=== PATIENT | female | born 1945 | race Caucasian/White ===

== ENCOUNTER 2025-03-09 08:29 | Observation (INO) ==
--- NOTE | 2025-03-09 08:45 | Emergency Department Note ---
HPI - Weakness General Chief complaint: Weakness Stated complaint: dehydration,uti Time Seen by Provider: 03/09/25 08:45 Source: patient and family Mode of arrival: wheelchair Limitations: no limitations History of Present Illness HPI Narrative: 79-year-old female presents to ER with her daughter with complaint of generalized weakness times several days, daughter believes she possibly has a UTI and reports that she has been more confused than normal. Patient daughter reports she is try to get Macrobid and her since Saturday. Patient reports she just does not feel well and that she is tired. MD Complaint: Reports generalized weakness Onset (ago): day(s) (4) Duration: Reports constant Location: Reports generalized Migration: Reports none Severity: moderate Quality: Reports aching and dull Relieving factors: Reports rest Exacerbating factors: Reports movement and exertion Context: Reports history of similar Associated symptoms: Reports dysuria, myalgias and shortness of breath Related Data Home Medications Medication Instructions Recorded Confirmed albuterol sulfate 2.5 mg/3 mL 2.5 mg inhalation DIRECTED PRN 03/09/25 03/09/25 (0.083 %) solution for nebulization shortness of breath or wheezing albuterol sulfate 90 mcg/actuation 2 puff inhalation DIRECTED PRN 03/09/25 03/09/25 aerosol inhaler shortness of breath or wheezing allopurinol 100 mg tablet 100 mg PO DAILY 03/09/25 03/09/25 calcium acetate(phosphat bind) 667 667 mg PO BID 03/09/25 03/09/25 mg capsule donepezil 5 mg tablet 5 mg PO BEDTIME 03/09/25 03/09/25 ergocalciferol (vitamin D2) 1,250 1,250 mcg PO QWEEK 03/09/25 03/09/25 mcg (50,000 unit) capsule (Vitamin D2) ferrous gluconate 324 mg (37.5 mg 324 mg PO DAILY 03/09/25 03/09/25 iron) tablet furosemide 40 mg tablet 80 mg PO DAILY 03/09/25 03/09/25 hydralazine 25 mg tablet 25 mg PO DAILY 03/09/25 03/09/25 hydrocodone 10 mg-acetaminophen 1 tab PO DIRECTED PRN pain 03/09/25 03/09/25 325 mg tablet metoprolol tartrate 50 mg tablet 50 mg PO BID 03/09/25 03/09/25 ropinirole 2 mg tablet 2 mg PO BEDTIME 03/09/25 03/09/25 Allergies Allergy/AdvReac Type Severity Reaction Status Date / Time gabapentin Allergy Severe Verified 03/09/25 08:56 shellfish derived Allergy Severe Verified 03/09/25 08:56 Review of Systems Status of ROS 10 or more systems reviewed and unremark able except as noted in history and below Constitutional Reports: malaise Ears, nose, mouth, and throat Reports: nasal congestion Respiratory Reports: shortness of breath and cough Genitourinary Reports: painful urination and urinary incontinence Musculoskeletal Reports: muscle weakness Psychiatric Reports: anxiety PFSH PFSH Medical History (Updated 03/09/25 @ 09:12 by Smitha Dhillon RN) Kidney disease Glaucoma Macular degeneration Anxiety COPD (chronic obstructive pulmonary disease) Hypertension Dementia Gout Surgical History (Updated 03/09/25 @ 09:12 by Smitha Dhillon RN) History of cholecystectomy History of hysterectomy History of total left hip replacement Social History Smoking status: current every day smoker What tobacco products do you use: cigarettes Packs per day: 1 Within the past year, how often did you have a drink containing alcohol: never Score interpretation: A score less than 3 is consistent with normal alcohol consumption. Non-prescribed substance use: denies use What is your current living situation: I presently have a place to live Problems where you live: no known problems Feel stressed/tense/nervous/anxious/difficulty sleeping: to some extent Life stressors: other (none) Life stressor details: current medical condition Due to disability, difficulty making decisions: No Exam Constitutional: normal general appearance, distress noted (moderate), average body habitus, no limitations and alert Vital Signs - 24 hr 03/09/25 08:51 03/09/25 09:13 Temperature 97.9 F Pulse Rate 78 Respiratory Rate 16 Blood Pressure 113/62 Pulse Oximetry 100 100 Oxygen Delivery Me thod Room Air HENMT: normocephalic, head/scalp atraumatic, hearing grossly normal bilaterally, external ears normal, external nose normal, oral mucous membranes normal, oropharynx normal, dentition normal and gingiva normal Eyes: PERRL, EOMs intact bilaterally, conjunctivae normal, no scleral icterus, no papilledema, normal visual landis by confrontation, alignment normal, periorbital findings normal and no nystagmus Neck/C-Spine: visual inspection normal, trachea midline, cervical spine nontender, cervical full ROM noted and supple Lymph: no lymphadenopathy noted and no lymphedema noted Chest: inspection of chest normal, inspection of breast(s) abnormal (deferred) and palpation of breast(s) abnormal (deferred) Respiratory: breath sounds equal bilaterally, normal respiratory effort, clear to auscultation bilaterally, wheezing noted (expiratory wheezes), rales noted (throughout), no retractions and no use of accessory muscles Cardiovascular: normal heart rate noted, regular rhythm noted, no gallop, no JVD, peripheral pulses 2+ throughout and no additional abnormal heart sounds Gastrointestinal: abdomen normal to inspection, abdomen soft to palpation, tender to palpation, nondistended, normoactive bowel sounds, no hepatosplenomegaly, no masses, no pulsatile mass, no ascites, no hernia and rectal exam abnormal (deferred) Genitourinary: no CVA tenderness, bladder abnormal to palpation (tender), vaginal abnormality noted (deferred) and cervical abnormality noted (deferred) Back/Pelvis: spine normal to inspection, no thoracic spine tenderness, no lumbar spine tenderness, thoracic spine ROM normal, lumbar spine ROM normal and no paraspinal muscle tenderness noted Extremities: normal to inspection, normal to palpation, no tenderness, full ROM, no joint enlargement and no deformity Neurology: jet dyeing machine tender II-XII intact, no movement abnormality noted, no focal motor deficit noted, no sensory deficits noted, gait normal, speech normal, coordination normal, no pronator drift noted, no fasciculations noted and GCS normal Psychiatry: Mental Status Exam documented within this Exam's Psych section mental status grossly normal, oriented x3, thought process normal, cooperative, affect normal, psychomotor activity normal and memory normal Feel stressed/tense/nervous/anxious/difficulty sleeping: to some extent Life stressors: other (none) Life stressor details: current medical condition Due to disability, difficulty making decisions: No Skin: skin color normal, no rash, no lesions, no ecchymosis noted, no wounds, no lacerations, skin turgor normal, no jaundice, no petechiae, no mottling, nails normal and no alopecia Course Course Hospital Course: 79-year-old female that presented to ER with complaint of generalized weakness and fatigue with possible UTI has been evaluated by physical exam, CBC, CMP, urinalysis, wound culture, troponin, BNP, EKG, and plain film chest x-ray results as noted in charting. Patient has been found to have elevated white count at 18.3, BNP of 1250, hypoalbuminemia at 2.3, elevated BUN at 55, creatinine of 3.9, and urinalysis reveals a UTI. Patient's urine will be cultured as well her wound that is an abscess to her labia. The abscess is already draining or her daughter stuck a pin in it to drain it and patient be placed on antibiotics. Patient has received 1 g Rocephin IV and will be admitted to the [facility] floor for ongoing administration of IV antibiotics, albumin, diuretics, fluid management, and respiratory therapy. Patient's family has agreed with the treatment pathway at this time. Vital Signs Vital signs: Vital Signs Temperature 97.9 F 03/09/25 08:51 Pulse Rate 78 03/09/25 08:51 Respiratory Rate 16 03/09/25 08:51 Blood Pressure 113/62 03/09/25 08:51 Pulse Oximetry 100 03/09/25 08:51 Oxygen Delivery Method Room Air 03/09/25 08:51 Temperature 97.9 F 03/09/25 08:51 Pulse Rate 78 03/09/25 08:51 Respiratory Rate 16 03/09/25 08:51 Blood Pressure 113/62 03/09/25 08:51 Pulse Oximetry 100 03/09/25 09:13 Oxygen Delivery Method Room Air 03/09/25 08:51 MDM - Weakness MDM Narrative Medical decision making narrative: Medical decision makers patient involved physical exam, CBC, CMP, urinalysis, magnesium, urine culture, wound culture, troponin, BNP, plain film chest x-ray, and EKG. Differential Diagnosis Differential diagnosis: Likely anemia, rhabdomyolysis, sepsis, dehydration and other ( uti, labial lesion) Lab Data Attestation: I reviewed the patient's lab results. Labs: Lab Results 03/09/25 03/09/25 03/09/25 Range/Units 08:55 09:00 09:30 WBC 18.3 H (4.3-9.3) K/uL RBC 2.9 L (4.00-5.50) M/uL Hgb 9.0 L (12.5-15.8) gm/dL Hct 28.5 L (35.9-46.7) % MCV 97.6 H (81.0-93.7) fl MCH 30.9 (27.6-32.2) pg MCHC 31.7 L (33.1-35.3) g/dl RDW 14.1 (11.4-14.2) % Plt Count 272 (152-353) K/uL MPV 7.8 (6.9-10.8) fl Gran % 77.2 H (47.8-71.3) % Lymph % (Auto) 12.2 L (20.0-43.0) % Travis % (Auto) 6.1 (3.6-9.8) % Eos % (Auto) 4.2 H (0.4-2.8) % Baso % (Auto) 0.3 (0.1-0.85) Lymph # (Auto) 2.2 (1.1-3.1) Travis # (Auto) 1.1 (1.1-3.1) Eos # (Auto) 0.8 H (0.0-0.2) Baso # (Auto) 0.1 (0.0-0.1) Absolute Gran (auto) 14.1 H (2.3-6.0) Sodium 140 (136-145) mmol/L Potassium 4.3 (3.6-5.2) mmol/L Chloride 102.0 (98-107) mmol/L Carbon Dioxide 27 (21-32) mmol/L Anion Gap 11.0 (4-14) mEq/L BUN 55 H (7-18) mg/dL Creatinine 3.8 H* (0.6-1.3) mg/dL Estimated GFR 11.6 (>59.9) Glucose 88 (70-110) mg/dL Calcium 8.6 (8.5-10.1) mg/dL Total Bilirubin 0.32 (0.0-1.0) mg/dL AST 7 L (15-37) U/L ALT 7 L (30-65) U/L Alkaline Phosphatase 68 (50-136) U/L Total Creatine Kinase 36 (26-192) U/L Troponin I High Sens 22.60 (4.0-60.4) ng/L B-Natriuretic Peptide 1250.0 H (0-100) pg/mL Total Protein 6.6 (6.4-8.2) g/dL Albumin 2.3 L (3.4-5.0) g/dL Urine Color Yellow (STRAW/YELL.) Urine Appearance Hazy (CLEAR) Ur Specific [place] 1.015 (1.001-1.035) Urine Protein 1+ (NEGATIVE) Urine Glucose (UA) Normal (NORMAL) Urine Ketones Negative (NEGATIVE) Urine Occult Blood Trace (NEG - TRACE) Urine Nitrite Negative (NEGATIVE) Urine Bilirubin Negative (NEGATIVE) Urine Urobilinogen Normal (NORMAL) Ur Leukocyte Esterase Positive (NEGATIVE) Urine RBC 2 - 5 (0 - 5) Urine WBC 10 - 25 ( 0 - 5) Ur Epithelial Cells Few (Few/HPF) Amorphous Sediment Negative (Negative) Urine Bacteria Moderate (Negative) Urine Mucus Negative (Negative) Urine Trichomonas Negative (Negative) Urine Yeast Negative (Negative) Fluid pH 6.0 (5 - 9) COVID-19 ([facility]) Not detected (Not Detectd) Influenza Type A Ag Negative (Negative) Influenza Type B Ag Negative (Negative) Imaging Data Imaging ordered: Chest x-ray Attestation: I have reviewed the pertinent imaging results. Radiologist's impression: EXAM: XR CHEST 1V HISTORY: dyspneadyspnea; COMPARISON: September 12, 2023 FINDINGS: The trachea is midline. The cardiac silhouette is mildly enlarged. The lungs are clear without focal infiltrate or effusion. The bony thorax is unremarkable. IMPRESSION: No acute cardiopulmonary disease. THIS IS AN ELECTRONICALLY VERIFIED FINAL REPORT 03/09/2025 8:56 AM - Electronically signed by Lora James MD ECG Data Attestation: I have reviewed the pertinent ECG results. Interpretation: Sinus rhythm rate 83 Normal P axis Short OR interval RR 716 OR 65 P axis 0 QRS 24 T 7 Discharge Plan Discharge Patient Disposition: Admitted As Observation Condition: Stable Chief Complaint: Weakness Clinical Impression: Urinary tract infection, Anemia, Dehydration, Leukocytosis, Hypoalbuminemia, Renal failure, Acute kidney injury Prescriptions: No Action furosemide 40 mg tablet 80 mg PO DAILY donepezil 5 mg tablet 5 mg PO BEDTIME albuterol sulfate 2.5 mg /3 mL (0.083 %) solution for nebulization 2.5 mg inhalation DIRECTED PRN (Reason: shortness of breath or wheezing) hydralazine 25 mg tablet 25 mg PO DAILY allopurinol 100 mg tablet 100 mg PO DAILY hydrocodone-acetaminophen 10-325 mg tablet 1 tab PO DIRECTED PRN (Reason: pain) ropinirole 2 mg tablet 2 mg PO BEDTIME metoprolol tartrate 50 mg tablet 50 mg PO BID ergocalciferol (vitamin D2) [Vitamin D2] 1,250 mcg (50,000 unit) capsule 1,250 mcg PO QWEEK albuterol sulfate 90 mcg/actuation HFA aerosol inhaler 2 puff INHALATION DIRECTED PRN (Reason: shortness of breath or wheezing) calcium acetate(phosphat bind) 667 mg capsule 667 mg PO BID ferrous gluconate 324 mg (37.5 mg iron) tablet 324 mg PO DAILY Print Language: Gabonese Referrals: [facility] [Other] Time of Disposition: 10:15
[2025-03-09 09:04] LABS: Basophils #(Absolute) Auto 0.1 (0.0-0.1); Basophils%(Percent) Auto 0.3 (0.1-0.85); Eosinophils#(Absolute)Auto 0.8 (0.0-0.2); Eosinophils%(Percent) Auto 4.2 % (0.4-2.8); Granulocytes % - Auto 77.2 % (47.8-71.3); Granulocytes#(Absolute)- Auto 14.1 (2.3-6.0); Hematocrit 28.5 % (35.9-46.7); Mean Corpuscular Volume 97.6 fl (81.0-93.7); Monocytes #(Absolute)- Auto 1.1 (1.1-3.1); Monocytes %(Percent)- Auto 6.1 % (3.6-9.8); Platelet Count 272 K/uL (152-353); White Blood Count 18.3 K/uL (4.3-9.3)
[2025-03-09] MEDS: IPRATROPIUM/ALBUTEROL SULFATE 3 ML AMPUL.NEB INH ONE (09:05)
[2025-03-09] MEDS: BUDESONIDE 0.5 MG/2 ML AMPUL.NEB INH ONE (09:05)
[2025-03-09 09:23] LABS: Potassium 4.3 mmol/L (3.6-5.2)
[2025-03-09 09:54] LABS: Specific Gravity Urine 1.015 (1.001-1.035); Urine Appearance HAZY (CLEAR); Urine Blood TRACE (NEG - TRACE); Urine Color YELLOW (STRAW/YELL.); Urine Urobilinogen Normal (NORMAL)
[2025-03-09 09:55] LABS: Urine Amorphous Sediment Negative (Negative); Urine Yeast Negative (Negative)
[2025-03-09] MEDS ORDERED: CEFTRIAXONE SODIUM 1 GM VIAL ONE (10:25)
[2025-03-09] MEDS: CEFTRIAXONE SODIUM 1 GM in 0.9 % SODIUM CHLORIDE MB+ 50 ML IV ONE (10:26)
[2025-03-09] MEDS: 0.9 % SODIUM CHLORIDE 1000 ML 1,000 ML IV STA (11:22)
[2025-03-09] MEDS ORDERED: METRONIDAZOLE 500 MG/100ML-NS 500 MG/100 ML PIGGYBACK IV ONE (12:44)
[2025-03-09] MEDS: METRONIDAZOLE 500 MG/100ML-NS 500 MG/100 ML PIGGYBACK IV STA (12:45)
--- NOTE | 2025-03-09 15:17 | History & Physical Report ---
H&P: HPI History of Present Illness Chief complaint: dehydration,uti Narrative: 79-year-old female presents to ER with her daughter with complaint of generalized weakness times several days, daughter believes she possibly has a UTI and reports that she has been more confused than normal. Patient daughter reports she is try to get Macrobid and her since Saturday. Patient reports she just does not feel well and that she is tired. Admitted patient to med/surg for further observation and treatment. Review of Systems Status of ROS 10 or more systems reviewed and unremark able except as noted in history and below Constitutional Reports: malaise; Denies: fever, chills or change in weight Eyes Denies: change in vision, blurry vision, blind spots, light sensitivity or eye discomfort Ears, nose, mouth, and throat Reports: nasal congestion; Denies: throat pain, neck pain, throat swelling, difficulty swallowing, hoarseness, mouth pain or swelling of lips/tongue Cardiovascular Reports: shortness of breath with exertion; Denies: chest pain, palpitations, edema or swelling of feet/ankles Respiratory Reports: shortness of breath, cough and wheezing Gastrointestinal Reports: constipation and change in bowel habits; Denies: abdominal pain, nausea, vomiting, coffee grounds in vomit, heartburn, diarrhea, difficulty swallowing or feeling full early Genitourinary Reports: painful urination, urinary urgency and urinary incontinence Musculoskeletal Reports: back pain, extremity pain, limited range of motion and muscle weakness Integumentary/Breast Reports: new lesion (left labia perineum ); Denies: rash, itching, redness, skin pain, skin tenderness, skin swelling, sores or changes in skin color Neurological Reports: headache; Denies: numbness in extremities or weakness in extremities Psychiatric Reports: anxiety, mood swings, irritability and memory loss; Denies: loss of interest, paranoia, suicidal ideation or homicidal ideation Endocrine Reports: fatigue; Denies: excessive urination, excessive thirst, cold intolerance, excessive sweating or flushing Hematologic/Lymphatic Denies: easy bruising, easy bleeding or enlarged lymph nodes Allergic/Immunologic Reports: wheezing; Denies: hives, throat swelling, tongue swelling, facial swelling or itchy eyes [facility] Medical History (Updated 03/09/25 @ 16:10 by Karlie Ramon DO) Kidney disease Glaucoma Macular degeneration Anxiety COPD (chronic obstructive pulmonary disease) Hypertension Dementia Gout Surgical History History of cholecystectomy History of hysterectomy History of total left hip replacement Social History Smoking status: current every day smoker What tobacco products do you use: cigarettes Packs per day: 1 Within the past year, how often did you have a drink containing alcohol: never Score interpretation: A score less than 3 is consistent with normal alcohol con sumption. Non-prescribed substance use: denies use What is your current living situation: I presently have a place to live Problems where you live: no known problems Feel stressed/tense/nervous/anxious/difficulty sleeping: to some extent Life stressors: other (none) Life stressor details: current medical condition Due to disability, difficulty making decisions: No Meds Home Medications and Allergies Home Medications Medication Instructions Recorded Confirmed Type albuterol sulfate 2.5 mg/3 mL 2.5 mg inhalation DIRECTED PRN 03/09/25 03/09/25 History (0.083 %) solution for nebulization shortness of breath or wheezing albuterol sulfate 90 mcg/actuation 2 puff inhalation DIRECTED PRN 03/09/25 03/09/25 History aerosol inhaler shortness of breath or wheezing allopurinol 100 mg tablet 100 mg PO DAILY 03/09/25 03/09/25 History calcium acetate(phosphat bind) 667 667 mg PO BID 03/09/25 03/09/25 History mg capsule donepezil 5 mg tablet 5 mg PO BEDTIME 03/09/25 03/09/25 History ergocalciferol (vitamin D2) 1,250 1,250 mcg PO QWEEK 03/09/25 03/09/25 History mcg (50,000 unit) capsule (Vitamin D2) ferrous gluconate 324 mg (37.5 mg 324 mg PO DAILY 03/09/25 03/09/25 History iron) tablet furosemide 40 mg tablet 80 mg PO DAILY 03/09/25 03/09/25 History hydralazine 25 mg tablet 25 mg PO DAILY 03/09/25 03/09/25 History hydrocodone 10 mg-acetaminophen 1 tab PO DIRECTED PRN pain 03/09/25 03/09/25 History 325 mg tablet metoprolol tartrate 50 mg tablet 50 mg PO BID 03/09/25 03/09/25 History ropinirole 2 mg tablet 2 mg PO BEDTIME 03/09/25 03/09/25 History Allergies Allergy/AdvReac Type Severity Reaction Status Date / Time gabapentin Allergy Severe Verified 03/09/25 08:56 shellfish derived Allergy Severe Verified 03/09/25 08:56 Exam Exam: Patient in suárez's position. Constitutional: abnormal general appearance (disheveled), (chronically ill) and (frail appearing), distress noted (moderate), average body habitus, limitations noted (altered mental status) and (behavioral limitations) and alert Vital Signs - 24 hr 03/09/25 08:50 03/09/25 08:51 03/09/25 09:10 Temperature 97.9 F Pulse Rate 78 73 Respiratory Rate 16 Blood Pressure 141/52 113/62 139/46 Pulse Oximetry 98 100 98 Oxygen Delivery Me thod Nasal Cannula Room Air Nasal Cannula Oxygen Flow Rate 03/09/25 09:13 03/09/25 09:40 03/09/25 10:43 Temperature Pulse Rate 76 75 Respiratory Rate Blood Pressure 132/49 119/39 Pulse Oximetry 100 98 95 Oxygen Delivery Me thod Nasal Cannula Nasal Cannula Oxygen Flow Rate 03/09/25 13:00 Temperature Pulse Rate 76 Respiratory Rate Blood Pressure 111/41 Pulse Oximetry 99 Oxygen Delivery Me thod Nasal Cannula Oxygen Flow Rate 2 HENMT: normocephalic, head/scalp atraumatic, hearing grossly normal bilaterally, external ears normal, external nose normal, oral mucous membranes normal, oropharynx normal, dentition normal and gingiva normal Eyes: PERRL, EOMs intact bilaterally, conjunctivae normal, no scleral icterus, papilledema noted, alignment normal, periorbital findings normal and no nystagmus Neck/C-Spine: abnormal to visual inspection, trachea midline, cervical spine nontender, abnormal cervical ROM noted, supple, no meningeal signs, thyroid normal and no carotid bruits Lymph: no lymphadenopathy noted and no lymphedema noted Chest: palpation of chest normal Respiratory: breath sounds equal bilaterally, abnormal respiratory effort, clear to auscultation bilaterally, wheezing noted (expiratory wheezes), rales noted (throughout), no retractions and no use of accessory muscles Cardiovascular: normal heart rate noted, regular rhythm noted, no gallop, no rub, no murmur, no JVD, no clicks, peripheral pulses 2+ throughout and no bruits noted Gastrointestinal: abdomen normal to inspection, abdomen soft to palpation, ten nguyen to palpation, nondistended, normoactive bowel sounds, hepatosplenomegaly noted, no masses, no pulsatile mass, no ascites and no hernia Genitourinary: no CVA tenderness, bladder abnormal to palpation (tender), external appearance abnormal (bartholins cyst labia) and vagina normal (deferred) lesion on labia Back/Pelvis: spine abnormal to inspection, thoracic spine tenderness noted, no lumbar spine tenderness, thoracic spine ROM normal, lumbar spine ROM abnormal and no paraspinal muscle tenderness noted Extremities: normal to inspection, normal to palpation, no tenderness, full ROM, no joint enlargement and no deformity Neurology: volunteer services specialist II-XII intact, no movement abnormality noted, no focal motor deficit noted, no sensory deficits noted, gait normal, speech normal, coordination normal, no pronator drift noted, no fasciculations noted and GCS normal Psychiatry: Mental Status Exam documented within this Exam's Psych section mental status grossly normal, oriented x3, thought process normal, cooperative, affect normal, psychomotor activity normal and memory normal Feel stressed/tense/nervous/anxious/difficulty sleeping: decline to answer (could not answer) Skin: skin color normal, no rash, lesion(s) noted (labia left pernium), no ecchymosis noted, no wounds, no lacerations, skin turgor normal, no jaundice, no petechiae, no mottling, nails normal and no alopecia Assessment and Plan Assessment and Plan (1) UTI (urinary tract infection): Qualifiers: Hematuria presence: with hematuria Urinary tract infection type: site unspecified Qualified Code(s): N39.0 - Urinary tract infection, site not specified; R31.9 - Hematuria, unspecified Code(s): N39.0 - Urinary tract infection, site not specified (2) Acute kidney injury superimposed on stage 4 chronic kidney disease: Code(s): N17.9 - Acute kidney failure, unspecified; N18.4 - Chronic kidney disease, stage 4 (severe) (3) Abscess of Bartholin gland: Code(s): N75.1 - Abscess of Bartholin's gland (4) Dehydration: Code(s): E86.0 - Dehydration (5) Hypertension: Qualifiers: Hypertension type: primary hypertension Qualified Code(s): I10 - Essential (primary) hypertension Code(s): I10 - Essential (primary) hypertension (6) Dementia: Qualifiers: Dementia behavioral or psychological symptom: unspecified whether behavioral, psychotic, or mood disturbance or anxiety Dementia severity: unspecified severity Dementia type: unspecified type Qualified Code(s): F03.90 - Unspecified dementia, unspecified severity, without behavioral disturbance, psychotic disturbance, mood disturbance, and anxiety Code(s): F03.90 - Unspecified dementia, unspecified severity, without behavioral disturbance, psychotic disturbance, mood disturbance, and anxiety (7) Leukocytosis: Qualifiers: Leukocytosis type: unspecified Qualified Code(s): D72.829 - Elevated white blood cell count, unspecified Code(s): D72.829 - Elevated white blood cell count, unspecified (8) Elevated brain natriuretic peptide (BNP) level: Code(s): R79.89 - Other specified abnormal findings of blood chemistry (9) Stage 4 chronic kidney disease: Code(s): N18.4 - Chronic kidney disease, stage 4 (severe) (10) COPD exacerbation: Code(s): J44.1 - Chronic obstructive pulmonary disease with (acute) exacerbation (11) Hypoalbuminemia: Code(s): E88.09 - Other disorders of plasma-protein metabolism, not elsewhere classified (12) Glaucoma: Qualifiers: Glaucoma type: unspecified Laterality: unspecified laterality Qualified Code(s): H40.9 - Unspecified glaucoma Code(s): H40.9 - Unspecified glaucoma (13) Macular degeneration: Qualifiers: Eye laterality: unspecified Macular degeneration type: unspecified type Qualified Code(s): H35.30 - Unspecified macular degeneration Code(s): H35.30 - Unspecified macular degeneration (14) Anxiety: Code(s): F41.9 - Anxiety disorder, unspecified (15) Gout: Qualifiers: Chronicity: unspecified Gout etiology: unspecified cause Gout site: unspecified site Qualified Code(s): M10.9 - Gout, unspecified Code(s): M10.9 - Gout, unspecified Plan 0.9% 100 ml per hour Rocephin 1 gram IV every 12 hours protonix 40 mg po every day lovenox 40 SQ every day flagyl 500 mg IV every 8 hours Furosemide 80 mg PO DAILY hold Hydralazine 25 mg PO DAILY Calcium Acetate 667 mg PO BID Albuterol Sulfate 2.5 mg/3 ml INH PRN Albuterol Sulfate 90 mcg/Actuation Hfa Aerosol Inhaler (2) puff INH PRN Allopurinol 100 mg PO DAILY Donepezil 5 mg PO BEDTIME Ergocalciferol 1,250 mcg PO QWEEK Metoprolol Tartrate 50 mg PO BID Ropinirole 2 mg PO BEDTIME Hydrocodone-Acetaminophen 10/325 mg (1) tab PO PRN Ferrous Gluconate 324 mg PO DAILY Results Labs Labs: CBC 03/09/25 Range/Units 08:55 WBC 18.3 H (4.3-9.3) K/uL RBC 2.9 L (4.00-5.50) M/uL Hgb 9.0 L (12.5-15.8) gm/dL Hct 28.5 L (35.9-46.7) % Plt Count 272 (152-353) K/uL Gran % 77.2 H (47.8-71.3) % Lymph % (Auto) 12.2 L (20.0-43.0) % [place] % (Auto) 6.1 (3.6-9.8) % Eos % (Auto) 4.2 H (0.4-2.8) % Baso % (Auto) 0.3 (0.1-0.85) Lymph # (Auto) 2.2 (1.1-3.1) [place] # (Auto) 1.1 (1.1-3.1) Eos # (Auto) 0.8 H (0.0-0.2) Baso # (Auto) 0.1 (0.0-0.1) Absolute Gran (auto) 14.1 H (2.3-6.0) CMP 03/09/25 08:55 Sodium 140 Potassium 4.3 Chloride 102.0 Carbon Dioxide 27 BUN 55 H Creatinine 3.8 H* Glucose 88 Calcium 8.6 Cardiac Enzymes 03/09/25 08:55 Total Creatine Kinase 36 Liver Function 03/09/25 Range/Units 08:55 Total Bilirubin 0.32 (0.0-1.0) mg/dL AST 7 L (15-37) U/L ALT 7 L (30-65) U/L Alkaline Phosphatase 68 (50-136) U/L Albumin 2.3 L (3.4-5.0) g/dL Urine 03/09/25 09:30 Urine Color Yellow Urine Appearance Hazy Ur Specific [place] 1.015 Urine Protein 1+ Urine Glucose (UA) Normal Pulse Oximetry Attestation: I have reviewed the pertinent pulse oximetry results. ECG Attestation: I have reviewed the pertinent ECG results. Prior ECG tracings: available for review Imaging Imaging ordered: Chest x-ray Radiologist's impression: XR CHEST 1V Date of Service: 03/09/25 HISTORY: dyspneadyspnea; COMPARISON: September 12, 2023 FINDINGS: The trachea is midline. The cardiac silhouette is mildly enlarged. The lungs are clear without focal infiltrate or effusion. The bony thorax is unremarkable. IMPRESSION: No acute cardiopulmonary disease.
[2025-03-09] MEDS ORDERED: ONDANSETRON HCL/PF 4 MG/2 ML VIAL INJ PRN (16:59)
[2025-03-09] MEDS ORDERED: DOCUSATE SODIUM 100 MG CAPSULE PO PRN (16:59)
[2025-03-09] MEDS ORDERED: MORPHINE SULFATE 2 MG/ML CARTRIDGE IV PRN (17:07)
[2025-03-09] MEDS: 0.9 % SODIUM CHLORIDE 1000 ML 1,000 ML IV SCH (18:07)
[2025-03-09] MEDS: NICOTINE 21 MG/HR .TD24 TD SCH (18:44)
[2025-03-09] MEDS: METOPROLOL TARTRATE 25 MG TABLET PO ONE (18:44)
[2025-03-09] MEDS: IPRATROPIUM/ALBUTEROL SULFATE 3 ML AMPUL.NEB INH SCH (20:17)
[2025-03-09] MEDS: BUDESONIDE 0.5 MG/2 ML AMPUL.NEB INH SCH (20:17)
[2025-03-09] MEDS: METRONIDAZOLE 500 MG/100ML-NS 500 MG/100 ML PIGGYBACK IV SCH (21:17)
[2025-03-09] MEDS: MELATONIN 5 MG TABLET PO ONE (22:58)
[2025-03-09] MEDS: ROPINIROLE HCL 2 MG TABLET PO ONE (22:58)
[2025-03-09] MEDS: DONEPEZIL HCL 5 MG TABLET PO ONE (22:58)
[2025-03-09] MEDS: ALPRAZolam 0.5 MG TABLET PO ONE (22:58)
[2025-03-10] MEDS: KETOROLAC 30 MG/ML INJ VIAL IVP PRN (01:51)
[2025-03-10] MEDS: METHYLPREDNISOLONE SOD SUCC/PF 125 MG/2 ML VIAL IVP ONE (05:14)
[2025-03-10 06:28] LABS: Basophils #(Absolute) Auto 0.1 (0.0-0.1); Basophils%(Percent) Auto 0.6 (0.1-0.85); Eosinophils#(Absolute)Auto 0.7 (0.0-0.2); Eosinophils%(Percent) Auto 5.2 % (0.4-2.8); Granulocytes % - Auto 70.5 % (47.8-71.3); Granulocytes#(Absolute)- Auto 9.7 (2.3-6.0); Monocytes #(Absolute)- Auto 0.8 (1.1-3.1); Monocytes %(Percent)- Auto 5.6 % (3.6-9.8); Platelet Count 245 K/uL (152-353); White Blood Count 13.7 K/uL (4.3-9.3)
[2025-03-10 06:36] LABS: Hematocrit 23.3 % (35.9-46.7)
[2025-03-10] MEDS ORDERED: ALBUTEROL SULFATE 2.5 MG/3 ML VIAL.NEB INH PRN (08:34)
[2025-03-10] MEDS ORDERED: HYDROCODONE/APAP 10/325 MG 1 EACH TABLET PO PRN ×2 (08:34→09:19)
[2025-03-10 08:41] LABS: Potassium 3.9 mmol/L (3.6-5.2)
[2025-03-10] MEDS: FUROSEMIDE 40 MG TABLET PO SCH (09:22)
[2025-03-10] MEDS: PANTOPRAZOLE SODIUM 40 MG TABLET.DR PO SCH (09:22)
[2025-03-10] MEDS: HYDRALAZINE HCL 25 MG TABLET PO SCH (09:22)
[2025-03-10] MEDS: CALCIUM ACETATE 667 MG CAPSULE PO SCH (09:22)
[2025-03-10] MEDS: CEFTRIAXONE SODIUM 1 GM in 0.9 % SODIUM CHLORIDE MB+ 50 ML IV SCH ×2 (09:22→10:04)
[2025-03-10] MEDS: ALLOPURINOL 100 MG TABLET PO SCH (09:22)
[2025-03-10] MEDS: METOPROLOL TARTRATE 50 MG TABLET PO SCH (09:23)
[2025-03-10] MEDS: FERROUS SULFATE 325 MG TABLET PO SCH (09:39)
[2025-03-10] MEDS: 0.9 % SODIUM CHLORIDE 500 ML IV ONE (11:20)
--- NOTE | 2025-03-10 11:54 | Progress Note ---
Progress Note: Subjective Subjective Interval history: Patient will receive PRBC today due to Hgb of 7.5. Nurse reports patient is confused and refusing fluids last Pm and agrees this am with education and still weak and confused today and short of breath Exam Exam: Patient in suárez's position. Constitutional: abnormal general appearance (disheveled), (chronically ill) and (frail appearing), distress noted (moderate), average body habitus, limitations noted (altered mental status) and (behavioral limitations) and alert Vital Signs - 24 hr 03/09/25 13:00 03/09/25 15:00 03/09/25 17:23 Temperature 97.7 F Pulse Rate 76 74 Pulse Rate [Left B rachial] 81 Respiratory Rate 21 Blood Pressure 111/41 111/57 Blood Pressure [Le ft Arm] 137/45 Pulse Oximetry 99 99 95 Oxygen Delivery Me thod Nasal Cannula Nasal Cannula Room Air Oxygen Flow Rate 2 2 Fraction of Inspir ed Oxygen 03/09/25 17:34 03/09/25 17:50 03/09/25 18:44 Temperature Pulse Rate 72 Pulse Rate [Left B rachial] Respiratory Rate 18 Blood Pressure 148/59 137/45 Blood Pressure [Le ft Arm] Pulse Oximetry 99 Oxygen Delivery Me thod Nasal Cannula Oxygen Flow Rate 2 Fraction of Inspir ed Oxygen 03/09/25 20:00 03/09/25 20:17 03/09/25 20:17 Temperature 97.5 F L Pulse Rate Pulse Rate [Left B rachial] 80 Respiratory Rate 16 Blood Pressure Blood Pressure [Le ft Arm] 136/49 Pulse Oximetry 98 98 98 Oxygen Delivery Me thod Room Air Nasal Cannula Oxygen Flow Rate 2 Fraction of Inspir ed Oxygen 03/09/25 23:51 03/10/25 00:08 03/10/25 04:01 Temperature 99.0 F Pulse Rate Pulse Rate [Left B rachial] 81 Respiratory Rate 17 Blood Pressure Blood Pressure [Le ft Arm] 124/28 Pulse Oximetry 97 98 95 Oxygen Delivery Me thod Room Air Oxygen Flow Rate Fraction of Inspir ed Oxygen 03/10/25 04:21 03/10/25 07:21 03/10/25 08:02 Temperature 97.9 F 97.5 F L Pulse Rate Pulse Rate [Left B rachial] 80 90 Respiratory Rate 16 16 Blood Pressure Blood Pressure [Le ft Arm] 97/38 112/50 Pulse Oximetry 97 96 97 Oxygen Delivery Me thod Room Air Nasal Cannula Oxygen Flow Rate 2 Fraction of Inspir ed Oxygen 03/10/25 09:22 03/10/25 09:22 03/10/25 09:23 Temperature Pulse Rate 90 Pulse Rate [Left B rachial] Respiratory Rate Blood Pressure 112/50 112/50 Blood Pressure [Le ft Arm] Pulse Oximetry Oxygen Delivery Me thod Oxygen Flow Rate Fraction of Inspir ed Oxygen 03/10/25 11:10 Temperature Pulse Rate Pulse Rate [Left B rachial] Respiratory Rate Blood Pressure Blood Pressure [Le ft Arm] Pulse Oximetry 92 L Oxygen Delivery Me thod Oxygen Flow Rate Fraction of Inspir ed Oxygen HENMT: normocephalic, head/scalp atraumatic, hearing grossly normal bilaterally, external ears normal, external nose normal, oral mucous membranes normal, oropharynx normal, dentition normal and gingiva normal Eyes: PERRL, EOMs intact bilaterally, conjunctivae normal, no scleral icterus, papilledema noted, normal visual landis by confrontation, alignment normal, periorbital findings normal and no nystagmus Neck/C-Spine: abnormal to visual inspection, trachea midline, cervical spine nontender, abnormal cervical ROM noted, supple, no meningeal signs, thyroid normal and no carotid bruits Lymph: no lymphadenopathy noted and no lymphedema noted Chest: inspection of chest normal, palpation of chest normal, inspection of breast(s) abnormal (deferred) and palpation of breast(s) abnormal (deferred) Respiratory: breath sounds equal bilaterally, abnormal respiratory effort, clear to auscultation bilaterally, wheezing noted (expiratory wheezes), (inspiratory wheezes) and (scattered wheezes), rales noted (throughout), no retractions and no use of accessory muscles Cardiovascular: normal heart rate noted, regular rhythm noted, no gallop, no rub, no murmur, no JVD, no clicks, peripheral pulses 2+ throughout, no bruits noted and no additional abnormal heart sounds Gastrointestinal: abdomen normal to inspection, abdomen soft to palpation, tender to palpation, nondistended, normoactive bowel sounds, hepatosplenomegaly noted, no masses, no pulsatile mass, no ascites, no hernia and rectal exam abnormal (deferred) Genitourinary: no CVA tenderness, bladder abnormal to palpation (tender), external appearance abnormal (bartholins cyst labia), vagina normal (deferred) and cervical abnormality noted (deferred) lesion on labia Back/Pelvis: spine abnormal to inspection, thoracic spine tenderness noted, no lumbar spine tenderness, thoracic spine ROM normal, lumbar spine ROM abnormal and no paraspinal muscle tenderness noted Extremities: normal to inspection, normal to palpation, no tenderness, full ROM, no joint enlargement and no deformity Neurology: speech pathologist II-XII intact, no movement abnormality noted, no focal motor deficit noted, no sensory deficits noted, gait normal, speech normal, coordination normal, no pronator drift noted, no fasciculations noted and GCS normal Psychiatry: Mental Status Exam documented within this Exam's Psych section mental status grossly normal, oriented x3, thought process normal, cooperative, affect normal, psychomotor activity normal and memory normal Skin: skin color normal, no rash, lesion(s) noted (labia left pernium), no ecchymosis noted, no wounds, no lacerations, skin turgor normal, no jaundice, no petechiae, no mottling, nails normal and no alopecia Progress Note: Objective Labs Labs: CBC 03/10/25 Range/Units 05:35 WBC 13.7 H (4.3-9.3) K/uL RBC 2.4 L (4.00-5.50) M/uL Hgb 7.5 L (12.5-15.8) gm/dL Hct 23.3 L* (35.9-46.7) % Plt Count 245 (152-353) K/uL Gran % 70.5 (47.8-71.3) % Lymph % (Auto) 18.1 L (20.0-43.0) % [place] % (Auto) 5.6 (3.6-9.8) % Eos % (Auto) 5.2 H (0.4-2.8) % Baso % (Auto) 0.6 (0.1-0.85) Lymph # (Auto) 2.5 (1.1-3.1) [place] # (Auto) 0.8 L (1.1-3.1) Eos # (Auto) 0.7 H (0.0-0.2) Baso # (Auto) 0.1 (0.0-0.1) Absolute Gran (auto) 9.7 H (2.3-6.0) CMP 03/10/25 05:35 Sodium 142 Potassium 3.9 Chloride 106.0 Carbon Dioxide 26 BUN 51 H Creatinine 3.5 H Glucose 90 Calcium 8.1 L Urine 03/09/25 09:30 Urine Color Yellow Urine Appearance Hazy Ur Specific [place] 1.015 Urine Protein 1+ Urine Glucose (UA) Normal Imaging Chest x-ray: Radiologist's impression: XR CHEST 1V Date of Service: 03/09/25 HISTORY: dyspneadyspnea; COMPARISON: September 12, 2023 FINDINGS: The trachea is midline. The cardiac silhouette is mildly enlarged. The lungs are clear without focal infiltrate or effusion. The bony thorax is unremarkable. IMPRESSION: No acute cardiopulmonary disease. Progress Note: A&P Assessment and Plan (1) UTI (urinary tract infection): Qualifiers: Hematuria presence: with hematuria Urinary tract infection type: site unspecified Qualified Code(s): N39.0 - Urinary tract infection, site not specified; R31.9 - Hematuria, unspecified (2) Acute kidney injury superimposed on stage 4 chronic kidney disease: (3) Abscess of Bartholin gland: (4) Dehydration: (5) Hypertension: Qualifiers: Hypertension type: primary hypertension Qualified Code(s): I10 - Essential (primary) hypertension (6) Dementia: Qualifiers: Dementia behavioral or psychological symptom: unspecified whether behavioral, psychotic, or mood disturbance or anxiety Dementia severity: unspecified severity Dementia type: unspecified type Qualified Code(s): F03.90 - Unspecified dementia, unspecified severity, without behavioral disturbance, psychotic disturbance, mood disturbance, and anxiety (7) Leukocytosis: Qualifiers: Leukocytosis type: unspecified Qualified Code(s): D72.829 - Elevated white blood cell count, unspecified (8) Elevated brain natriuretic peptide (BNP) level: (9) Stage 4 chronic kidney disease: (10) COPD exacerbation: (11) Hypoalbuminemia: (12) Glaucoma: Qualifiers: Glaucoma type: unspecified Laterality: unspecified laterality Qualified Code(s): H40.9 - Unspecified glaucoma (13) Macular degeneration: Qualifiers: Eye laterality: unspecified Macular degeneration type: unspecified type Qualified Code(s): H35.30 - Unspecified macular degeneration (14) Anxiety: (15) Gout: Qualifiers: Chronicity: unspecified Gout etiology: unspecified cause Gout site: unspecified site Qualified Code(s): M10.9 - Gout, unspecified (16) Poor peripheral circulation: (17) Bilateral leg cramps: Plan 0.9% 100 ml per hour Rocephin 1 gram IV every 12 hours protonix 40 mg po every day lovenox 40 SQ every day flagyl 500 mg IV every 8 hours Furosemide 80 mg PO DAILY hold Hydralazine 25 mg PO DAILY Calcium Acetate 667 mg PO BID Albuterol Sulfate 2.5 mg/3 ml INH PRN Albuterol Sulfate 90 mcg/Actuation Hfa Aerosol Inhaler (2) puff INH PRN Allopurinol 100 mg PO DAILY Donepezil 5 mg PO BEDTIME Ergocalciferol 1,250 mcg PO QWEEK Metoprolol Tartrate 50 mg PO BID Ropinirole 2 mg PO BEDTIME Hydrocodone-Acetaminophen 10/325 mg (1) tab PO PRN Ferrous Gluconate 324 mg PO DAILY Transfuse 1 Unit PRBC Fall Risk Details Bravo Fall Scale Risk Level: Moderate Fall Risk Current Medications: Current Medications Acetaminophen (Acetaminophen 500 Mg Tablet) 1,000 mg PO Q6H PRN PRN Reason: MILD PAIN SCALE 1-4 Hydrocodone Bitart/Acetaminophen (Hydrocodone/Apap 10/325 Mg 1 Each Tablet) 1 each PO TID PRN PRN Reason: Moderate Pain SCALE 5-7 Albuterol (Albuterol Sulfate 2.5 Mg/3 Ml Vial.Neb) 2.5 mg INH RQ6 PRN PRN Reason: shortness of breath or wheezin Albuterol Sulfate (Ipratropium/Albuterol Sulfate 3 Ml Ampul.Neb) 3 ml INH RQ4 [facility] Last Admin: 03/10/25 11:10 Dose: 3 ml Allopurinol (Allopurinol 100 Mg Tablet) 100 mg PO DAILY [facility] Last Admin: 03/10/25 09:22 Dose: 100 mg Budesonide (Budesonide 0.5 Mg/2 Ml Ampul.Neb) 1 mg INH RBID [facility] Last Admin: 03/10/25 07:20 Dose: 1 mg Calcium Acetate (Calcium Acetate 667 Mg Capsule) 667 mg PO BID [facility] Last Admin: 03/10/25 09:22 Dose: 667 mg Docusate Sodium (Docusate Sodium 100 Mg Capsule) 100 mg PO DAILY PRN PRN Reason: Constipation Donepezil HCl (Donepezil Hcl 5 Mg Tablet) 5 mg PO BEDTIME [facility] Enoxaparin Sodium (Enoxaparin Sodium 30 Mg/0.3 Ml Syringe) 30 mg SUBQ BEDTIME [facility] Ergocalciferol (Ergocalciferol (Vitamin D2) 1,250 Mcg Capsule) 1,250 mcg PO QWEEK [facility] Ferrous Sulfate (Ferrous Sulfate 325 Mg Tablet) 325 mg PO DAILY [facility] Last Admin: 03/10/25 09:39 Dose: 325 mg Furosemide (Furosemide 40 Mg Tablet) 80 mg PO DAILY [facility] Last Admin: 03/10/25 09:22 Dose: 80 mg Hydralazine HCl (Hydralazine Hcl 25 Mg Tablet) 25 mg PO DAILY [facility] Last Admin: 03/10/25 09:22 Dose: 25 mg Sodium Chloride (Sodium Chloride) 1,000 mls @ 75 mls/hr IV CONT [facility] Last Admin: 03/09/25 18:07 Dose: Not Given Ceftriaxone Sodium 1 gm/ (Sodium Chloride) 50 mls @ 100 mls/hr IV DAILY [facility] Last Infusion: 03/10/25 10:04 Dose: Infused Metronidazole (Metronidazole 500 Mg/100ml-Ns) 500 mg in 100 mls @ 100 mls/hr IV Q8H [facility] Last Admin: 03/10/25 05:15 Dose: 100 mls/hr Ketorolac Tromethamine (Ketorolac 30 Mg/Ml Inj Vial) 15 mg IVP Q6H PRN PRN Reason: Moderate Pain SCALE 5-7 Stop: 03/14/25 17:06 Last Admin: 03/10/25 01:51 Dose: 15 mg Metoprolol Tartrate (Metoprolol Tartrate 50 Mg Tablet) 50 mg PO BID [facility] Last Admin: 03/10/25 09:23 Dose: 50 mg Morphine Sulfate (Morphine Sulfate 2 Mg/Ml Cartridge) 2 mg IV Q4H PRN PRN Reason: Severe Pain SCALE 8-10 Nicotine (Nicotine 21 Mg/Hr .Td24) 1 each TD DAILY [facility] Last Admin: 03/10/25 09:23 Dose: 1 each Ondansetron HCl (Ondansetron Hcl/Pf 4 Mg/2 Ml Vial) 4 mg INJ Q6H PRN PRN Reason: Nausea And Vomiting Pantoprazole Sodium (Pantoprazole Sodium 40 Mg Tablet.Dr) 40 mg PO DAILY [facility] Last Admin: 03/10/25 09:22 Dose: 40 mg Ropinirole HCl (Ropinirole Hcl 2 Mg Tablet) 2 mg PO BEDTIME [facility] Time Spent With Patient Time: Total time spent is greater than 50% in coordination of care (as documented) at patient's floor/unit and/or counseling patient: Time with patient: greater than 35 minutes
[2025-03-10] MEDS: 0.9 % SODIUM CHLORIDE 100ML 100 ML IV ONE (12:04)
[2025-03-10] MEDS ORDERED: ORPHENADRINE CITRATE 30 MG/ML VIAL ONE (12:21)
[2025-03-10] MEDS: ORPHENADRINE CITRATE 30 MG/ML VIAL IVP ONE ×2 (12:26)
[2025-03-10] MEDS: ENOXAPARIN SODIUM 30 MG/0.3 ML SYRINGE SUBQ SCH (21:52)
[2025-03-10] MEDS: ACETAMINOPHEN 500 MG TABLET PO PRN (21:53)
[2025-03-10] MEDS: DONEPEZIL HCL 5 MG TABLET PO SCH (21:53)
[2025-03-10] MEDS: ROPINIROLE HCL 2 MG TABLET PO SCH (21:53)
[2025-03-11 05:23] LABS: Basophils%(Percent) Auto 0.1 (0.1-0.85); Granulocytes % - Auto 92.2 % (47.8-71.3); Hematocrit 30.3 % (35.9-46.7); Mean Corpuscular Volume 94.8 fl (81.0-93.7); Monocytes #(Absolute)- Auto 0.4 (1.1-3.1); Monocytes %(Percent)- Auto 2.2 % (3.6-9.8); Platelet Count 269 K/uL (152-353); White Blood Count 17.4 K/uL (4.3-9.3)
[2025-03-11 05:46] LABS: Potassium 4.3 mmol/L (3.6-5.2)
[2025-03-11 07:44] VITALS: TEMP 98.2
[2025-03-11 12:09] VITALS: BP 150/70; PULSE 87; RESP 20
--- NOTE | 2025-03-11 14:22 | Discharge Summary ---
DS: Providers Provider Date of admission: 03/09/25 10:30 Primary care physician: Nicholas Lujan NP Admitting clinician: Navin Henry Attending physician on admission: Karlie Ramon Attending physician on discharge: Karlie Ramon Discharging clinician: Karlie Ramon Anticipated date of discharge: 03/11/25 DS: Diagnosis Discharge Diagnosis (1) UTI (urinary tract infection): Qualifiers: Hematuria presence: with hematuria Urinary tract infection type: site unspecified Qualified Code(s): N39.0 - Urinary tract infection, site not specified; R31.9 - Hematuria, unspecified (2) Acute kidney injury superimposed on stage 4 chronic kidney disease: (3) Abscess of Bartholin gland: (4) Dehydration: (5) Hypertension: Qualifiers: Hypertension type: primary hypertension Qualified Code(s): I10 - Essential (primary) hypertension (6) Dementia: Qualifiers: Dementia behavioral or psychological symptom: unspecified whether behavioral, psychotic, or mood disturbance or anxiety Dementia severity: unspecified severity Dementia type: unspecified type Qualified Code(s): F03.90 - Unspecified dementia, unspecified severity, without behavioral disturbance, psychotic disturbance, mood disturbance, and anxiety (7) Leukocytosis: Qualifiers: Leukocytosis type: unspecified Qualified Code(s): D72.829 - Elevated white blood cell count, unspecified (8) Elevated brain natriuretic peptide (BNP) level: (9) Stage 4 chronic kidney disease: (10) COPD exacerbation: (11) Hypoalbuminemia: (12) Glaucoma: Qualifiers: Glaucoma type: unspecified Laterality: unspecified laterality Qualified Code(s): H40.9 - Unspecified glaucoma (13) Macular degeneration: Qualifiers: Eye laterality: unspecified Macular degeneration type: unspecified type Qualified Code(s): H35.30 - Unspecified macular degeneration (14) Anxiety: (15) Gout: Qualifiers: Chronicity: unspecified Gout etiology: unspecified cause Gout site: unspecified site Qualified Code(s): M10.9 - Gout, unspecified Plan Pantoprazole Sodium 40 mg PO DAILY Acetaminophen 1,000 mg PO Q6H PRN Ondansetron Hcl 4 mg INJ Q6H PRN Docusate Sodium 100 mg PO DAILY PRN Sodium Chloride 1,000 mls @ 75 mls/hr IV CONT Morphine Sulfate 2 mg IV Q4H PRN Ketorolac Tromethamine 15 mg IVP Q6H PRN Ceftriaxone Sodium 1 gm in Sodium Chloride 50 mls @ 100 mls/hr IV DAILY Metronidazole 500 mg in 100 mls @ 100 mls/hr IV Q8H Albuterol Sulfate 3 ml INH RQ4 Budesonide 1 mg INH RBID Nicotine 21 mg/hr Patch (1) each TD DAILY Albuterol Sulfate 2.5 mg INH RQ6H PRN Allopurinol 100 mg PO DAILY Calcium Acetate 667 mg PO BID Donepezil Hcl 5 mg PO BEDTIME Ergocalciferol 1,250 mcg PO QWEEK Ferrous Sulfate 325 mg PO DAILY Furosemide 80 mg PO DAILY Hydralazine Hcl 25 mg PO DAILY Metoprolol Tartrate 50 mg PO BID Ropinirole Hcl 2 mg PO BEDTIME Hydrocodone Bitart/Acetaminophen 10-325 mg (1) each PO TID PRN Enoxaparin Sodium 30 mg SUBQ BEDTIME Discharge home for self care. DS: Summary Hospital Course Hospital Course: 79-year-old female presents to ER with her daughter with complaint of generalized weakness times several days, daughter believes she possibly has a UTI and reports that she has been more confused than normal. Patient daughter reports she is try to get Macrobid and her since Saturday. Patient reports she just does not feel well and that she is tired. Admitted patient to med/surg for further observation and treatment. Day two of hospital stay, patient received (1) unit of PRBC due to Hgb of 7.5. Patient displayed some confusion in the morning and refused fluids through the night. Day three of hospital stay, patient is feeling "better" and requesting to go home. Patient's chief complaint today was cramping behind her knees; she reports this is a baseline for her. Patient is ready to discharge home for self care and follow up with her PCP in 5-7 days of discharge or sooner if needed. Status at Discharge Overall status at discharge: patient is back to baseline Time Spent with Patient Time attestation: Total time spent providing and/or coordinating discharge services: 47 minutes Time spent: greater than 30 minutes Exam Exam: Patient in suárez's position. Constitutional: abnormal general appearance (disheveled), (chronically ill) and (frail appearing), no apparent distress, average body habitus, no limitations and alert Vital Signs - 24 hr 03/10/25 14:15 03/10/25 15:03 03/10/25 15:20 Temperature 97.8 F 97.9 F Pulse Rate 85 85 Pulse Rate [Left B rachial] Respiratory Rate 22 20 Blood Pressure 136/59 133/63 Blood Pressure [Le ft Arm] Pulse Oximetry 94 L [facility] 03/[facility] 16:00 03/10/25 19:30 03/10/25 20:49 Temperature 97.9 F 98.1 F Pulse Rate Pulse Rate [Left B rachial] 89 96 H Respiratory Rate 22 19 Blood Pressure Blood Pressure [Le ft Arm] 127/53 144/69 Pulse Oximetry 95 95 94 L [facility] Room Air 03/10/25 21:52 03/10/25 23:20 03/11/25 03:36 Temperature 97.9 F 97.7 F Pulse Rate 96 H Pulse Rate [Left B rachial] 72 91 H Respiratory Rate 18 16 Blood Pressure 144/69 Blood Pressure [Le ft Arm] 130/61 140/71 Pulse Oximetry 93 L 93 L Oxygen Delivery [facility] Room Air Room Air 03/11/25 07:14 03/11/25 07:42 03/11/25 09:08 Temperature 98.2 F Pulse Rate 90 Pulse Rate [Left B rachial] 90 Respiratory Rate 22 Blood Pressure 144/65 Blood Pressure [Le ft Arm] 144/65 Pulse Oximetry 98 99 Oxygen Delivery [facility] Room Air 03/11/25 09:08 03/11/25 09:08 03/11/25 11:05 Temperature Pulse Rate Pulse Rate [Left B rachial] Respiratory Rate Blood Pressure 144/65 144/65 Blood Pressure [Le ft Arm] Pulse Oximetry 96 [facility] 03/11/25 12:00 Temperature 98.2 F Pulse Rate Pulse Rate [Left B rachial] 87 Respiratory Rate 20 Blood Pressure Blood Pressure [Le ft Arm] 150/70 Pulse Oximetry 95 [facility] Air HENMT: normocephalic, head/scalp atraumatic, hearing grossly normal bilaterally, external ears normal, external nose normal, oral mucous membranes normal, oropharynx normal, dentition normal and gingiva normal Eyes: PERRL, EOMs intact bilaterally, conjunctivae normal, no scleral icterus, papilledema noted, normal visual landis by confrontation, alignment normal, periorbital findings normal and no nystagmus Neck/C-Spine: abnormal to visual inspection, trachea midline, cervical spine nontender, abnormal cervical ROM noted, supple, no meningeal signs, thyroid normal and no carotid bruits Lymph: no lymphadenopathy noted and no lymphedema noted Chest: inspection of chest normal and palpation of chest normal Respiratory: breath sounds equal bilaterally, normal respiratory effort, clear to auscultation bilaterally, no wheezes, no rales, no retractions and no use of accessory muscles Cardiovascular: normal heart rate noted, regular rhythm noted, no gallop, no rub, no murmur, no JVD, no clicks, peripheral pulses 2+ throughout, no bruits noted and no additional abnormal heart sounds Gastrointestinal: abdomen normal to inspection, abdomen soft to palpation, nontender to palpation, nondistended, normoactive bowel sounds, no hepatosplenomegaly, no masses, no pulsatile mass, no ascites and no hernia Genitourinary: no CVA tenderness, bladder normal to palpation and external appearance abnormal (bartholins cyst labia) lesion on labia Back/Pelvis: spine abnormal to inspection, thoracic spine tenderness noted, no lumbar spine tenderness, thoracic spine ROM normal, lumbar spine ROM abnormal and no paraspinal muscle tenderness noted Extremities: normal to inspection, normal to palpation, no tenderness, full ROM, no joint enlargement and no deformity Neurology: solution specialist II-XII intact, no movement abnormality noted, no focal motor deficit noted, no sensory deficits noted, gait normal, speech normal, coordination normal, no pronator drift noted, no fasciculations noted and GCS normal Psychiatry: Mental Status Exam documented within this Exam's Psych section mental status grossly normal, oriented x3, thought process normal, cooperative, affect normal, psychomotor activity normal and memory normal Skin: skin color normal, no rash, lesion(s) noted (labia left pernium), no ecchymosis noted, no wounds, no lacerations, skin turgor normal, no jaundice, no petechiae, no mottling, nails normal and no alopecia DS: Data Data Completed and Pending Labs on day of discharge: Labs from last 24 hours 03/11/25 03/10/25 05:15 08:50 WBC 17.4 H RBC 3.2 L Hgb 9.9 L Hct 30.3 L MCV 94.8 H MCH 31.1 MCHC 32.8 L RDW 14.6 H Plt Count 269 MPV 8.1 Gran % 92.2 H Lymph % (Auto) 5.5 L [place] % (Auto) 2.2 L Eos % (Auto) 0.0 L Baso % (Auto) 0.1 Lymph # (Auto) 1.0 L [place] # (Auto) 0.4 L Eos # (Auto) 0.0 Baso # (Auto) 0.0 Absolute Gran (auto) 16.0 H Sodium 142 Potassium 4.3 Chloride 107.0 Carbon Dioxide 25 Anion Gap 10.0 BUN 57 H Creatinine 3.7 H* Estimated GFR 11.9 Glucose 142 H Calcium 8.4 L Phosphorus 5.6 H Magnesium 2.6 H Total Bilirubin 0.28 AST 7 L ALT 8 L Alkaline Phosphatase 63 B-Natriuretic Peptide 1820.0 H Total Protein 6.0 L Albumin 2.0 L Crossmatch (AHG) See Detail Preliminary micro results at discharge 03/09/25 09:30 Urine Culture - Preliminary Urine,Clean Catch 03/09/25 10:06 Wound Culture - Preliminary Perineum 03/09/25 12:00 Blood Culture - Preliminary Blood - Venous Draw (Peripheral) Imaging Chest x-ray: Radiologist's impression: XR CHEST 1V Date of Service: 03/09/25 HISTORY: dyspneadyspnea; COMPARISON: September 12, 2023 FINDINGS: The trachea is midline. The cardiac silhouette is mildly enlarged. The lungs are clear without focal infiltrate or effusion. The bony thorax is unremarkable. IMPRESSION: No acute cardiopulmonary disease. Discharge Plan Discharge Disposition: Home, Self-Care Condition: Improved Discharge Medications: New cephalexin 500 mg capsule 500 mg PO Q8H Qty: 10 0RF cyclobenzaprine 5 mg tablet 5 mg PO Q12H Qty: 14 0RF Continued donepezil 5 mg tablet 5 mg PO BEDTIME albuterol sulfate 2.5 mg /3 mL (0.083 %) solution for nebulization 2.5 mg inhalation DIRECTED PRN (Reason: shortness of breath or wheezing) hydralazine 25 mg tablet 25 mg PO DAILY allopurinol 100 mg tablet 100 mg PO DAILY hydrocodone-acetaminophen 10-325 mg tablet 1 tab PO TID PRN (Reason: pain) ropinirole 2 mg tablet 2 mg PO BEDTIME metoprolol tartrate 50 mg tablet 50 mg PO BID ergocalciferol (vitamin D2) [Vitamin D2] 1,250 mcg (50,000 unit) capsule 1,250 mcg PO QWEEK albuterol sulfate 90 mcg/actuation HFA aerosol inhaler 2 puff INHALATION DIRECTED PRN (Reason: shortness of breath or wheezing) calcium acetate(phosphat bind) 667 mg capsule 667 mg PO BID ferrous gluconate 324 mg (37.5 mg iron) tablet 324 mg PO DAILY alprazolam 1 mg tablet 2 mg PO TID Discontinued furosemide 40 mg tablet 80 mg PO DAILY Discharge Orders: Discharge Order (Routine); Ordered 03/11/25 Ordered By: Karlie Ramon Activity: increase activity as tolerated Diet: low fat, low cholesterol and other Diet Detail: renal diet Interventions: Discharge Assessment Last Done: 03/11/25 12:40 MED/SURG & ICU Observation Charge Sheet Last Done: 03/11/25 12:39 Patient Instructions: Low-Sodium Diet (GEN), Urinary Tract Infection in Older Adults (GEN) Activity Restrictions/Additional Instructions: follow up PCP Nicholas Lujan 5-7 days and discuss Bumex change from lasix prn and nephrology change as patient not happy with Maik daily weight and if dyspnea and weight gain take lasix but for now would not use routinely and discussed new option of bumex leg cramps and patient states norflex last pm helped a lot so will do flexeril at home and see if it helps. continue daily aspirin Forms: Portal/Health Info Access Inst Follow-Ups: VIRAJ [Other] Discharge Date/Time: 03/11/25 13:15
[2025-03-14] MEDS ORDERED: ERGOCALCIFEROL (VITAMIN D2) 1,250 MCG CAPSULE PO SCH (09:00)
== END 2025-03-11 13:15 | disposition home or self-care (01) ==
LOC: MS 08:29 → ED 08:29 → OBSVTOIN 10:30 → INTOOBSV 10:30 → MS 17:42
PROVIDERS: ADMIT Family Medicine; ATTEND Family Medicine
DX: J44.1 Chronic obstructive pulmonary disease with (acute) exacerbation; N17.9 Acute kidney failure, unspecified; N39.0 Urinary tract infection, site not specified; D63.1 Anemia in chronic kidney disease; E86.0 Dehydration; Z88.8 Allergy status to other drugs, medicaments and biological substances; F17.210 Nicotine dependence, cigarettes, uncomplicated; N75.1 Abscess of Bartholin's gland; H40.9 Unspecified glaucoma; Z79.899 Other long term (current) drug therapy; E88.09 Other disorders of plasma-protein metabolism, not elsewhere classified; M10.9 Gout, unspecified; F03.94 Unspecified dementia, unspecified severity, with anxiety; F41.9 Anxiety disorder, unspecified; H35.30 Unspecified macular degeneration; I12.9 Hypertensive chronic kidney disease with stage 1 through stage 4 chronic kidney disease, or unspecified chronic kidney disease; N18.4 Chronic kidney disease, stage 4 (severe)